=== PATIENT | male | born 1955 ===

== ENCOUNTER → 2022-01-05 | Outpatient (CLI) | payer MEDICARE, OTHER | LOC: COL.RAD 07:49 | DX: R91.8 Other nonspecific abnormal finding of lung field (principal); R59.0 Localized enlarged lymph nodes | CPT/HCPCS: Q9967 ==

== ENCOUNTER 2023-08-18 09:34 | Emergency (ER) | payer MEDICARE, OTHER ==
[~2023-08-18] VITALS: Ht 175.3 cm; Wt 93.2 kg
[2023-08-18 09:40] VITALS: TEMP 98
[2023-08-18] MEDS ORDERED: Ketorolac 30 MG/ML VIAL IM ONE (10:15)
[2023-08-18] MEDS ORDERED: NORCO 325 MG-51 TAB PO (12:09)
[2023-08-18 12:25] VITALS: BP 127/83; PULSE 66
== END 2023-08-18 12:25 | disposition home or self-care (01) ==
LOC: COL.ER 09:34
DX: S20.211A Contusion of right front wall of thorax, initial encounter (principal); Z87.891 Personal history of nicotine dependence; W10.1XXA Fall (on)(from) sidewalk curb, initial encounter; Y93.K1 Activity, walking an animal
CPT/HCPCS: A9284; J1885; J2360